=== PATIENT | male | born 1975 | race African-American/Black ===

== ENCOUNTER 2022-11-07 10:47 | Inpatient (IN) | payer OTHER ==
[2022-11-07 11:29] VITALS: BMI 25.7
[2022-11-07] MEDS ORDERED: hydrOXYzine PAMOATE 25 MG CAPSULE (FP) PO PRN (11:41)
[2022-11-07] MEDS ORDERED: NICOTINE 10 MG CARTRIDGE (INHALER) IH PRN (11:41)
[2022-11-07] MEDS ORDERED: DICYCLOMINE HCL 10 MG CAPSULE PO PRN (11:41)
[2022-11-07] MEDS ORDERED: POLYETHYLENE GLYCOL (HEALTHYLAX) 3350 17 GM PACKET PO PRN (11:41)
[2022-11-07] MEDS ORDERED: IBUPROFEN 600 MG TABLET (FP) PO PRN (11:41)
[2022-11-07] MEDS ORDERED: MAG HYDROX/AL HYDROX/SIMETH 30 ML UNIT-DOSE CUP PO PRN (11:41)
[2022-11-07] MEDS ORDERED: ONDANSETRON *ODT* 4 MG TABLET SL PRN (11:41)
[2022-11-07] MEDS ORDERED: chlordiazePOXIDE HCL 25 MG CAPSULE PO PRN (11:41)
[2022-11-07] MEDS ORDERED: LOPERAMIDE HCL 2 MG CAPSULE PO PRN (11:41)
[2022-11-07] MEDS ORDERED: IBUPROFEN 400 MG TABLET (FP) PO PRN (11:41)
[2022-11-07] MEDS ORDERED: BENZOCAINE/MENTHOL (CHLORASEPTIC ) LOZENGE MM PRN (11:41)
[2022-11-07] MEDS ORDERED: ACETAMINOPHEN 325 MG TABLET (FP) PO PRN ×2 (11:41)
[2022-11-07] MEDS ORDERED: BISMUTH SUBSALICYLATE 262 MG/15 ML BTL PO PRN (11:41)
[2022-11-07] MEDS ORDERED: MAGNESIUM HYDROX 2400MG/30ML ORAL SUSPENSION 30 ML CUP PO PRN (11:41)
[2022-11-07] MEDS ORDERED: NICOTINE POLACRILEX 2 MG GUM BUC PRN (11:41)
[2022-11-07] MEDS: chlordiazePOXIDE HCL 25 MG CAPSULE PO SCH ×2 (17:51→22:03)
[2022-11-07] MEDS: MELATONIN 5 MG TABLETS PO SCH (22:03)
[2022-11-07] MEDS: THIAMINE HCL 100 MG TABLET (FP) PO SCH (22:03)
[2022-11-08] MEDS: chlordiazePOXIDE HCL 25 MG CAPSULE PO SCH ×4 (05:28→22:11)
[2022-11-08] MEDS: NICOTINE 14 MG/24 HOURS TOPICAL PATCH TD SCH (10:10)
[2022-11-08] MEDS: PRENATAL VITAMINS W/ FOLIC ACID TABLET (FP) PO SCH (10:10)
[2022-11-08 12:05] LABS: HEMATOCRIT 39.3 % (35.4-49); HEMOGLOBIN 13.2 GM/dL (11.7-16.9); MCH 30.1 pg (25.7-33.7); MCHC 33.5 g/dl (32.0-35.9); MEAN CELL VOLUME 89.8 fl (80-96); MEAN PLT VOLUME 8.2 fl (7.5-11.1); PLATELET COUNT 322 10^3/uL (134-434); RBC 4.38 M/mm3 (4.00-5.60); RDW 14.6 % (11.9-15.9); WHITE BLOOD COUNT 6.3 K/mm3 (4.0-10.0)
[2022-11-08 12:22] LABS: BLOOD UREA NITROGEN 15.3 mg/dL (7-18)
[2022-11-08 12:26] LABS: ALBUMIN 3.4 g/dl (3.4-5.0); BILIRUBIN,TOTAL 0.7 mg/dL (0.2-1); TOT PROT 6.6 g/dl (6.4-8.2)
[2022-11-08] MEDS: THIAMINE HCL 100 MG TABLET (FP) PO SCH (22:10)
[2022-11-08] MEDS: MELATONIN 5 MG TABLETS PO SCH (22:10)
[2022-11-08] MEDS: METHOCARBAMOL 500 MG TABLET PO PRN (22:11)
[2022-11-09] MEDS ORDERED: chlordiazePOXIDE HCL 10 MG CAPSULE PO PRN
[2022-11-09] MEDS: chlordiazePOXIDE HCL 10 MG CAPSULE PO SCH ×4 (05:39→22:04)
[2022-11-09] MEDS: NICOTINE 14 MG/24 HOURS TOPICAL PATCH TD SCH (10:37)
[2022-11-09] MEDS: PRENATAL VITAMINS W/ FOLIC ACID TABLET (FP) PO SCH (10:37)
[2022-11-09] MEDS: MELATONIN 5 MG TABLETS PO SCH (22:04)
[2022-11-09] MEDS: THIAMINE HCL 100 MG TABLET (FP) PO SCH (22:04)
[2022-11-09] MEDS: METHOCARBAMOL 500 MG TABLET PO PRN (22:05)
[2022-11-10] MEDS ORDERED: chlordiazePOXIDE HCL 10 MG CAPSULE PO SCH (05:00)
[2022-11-10] MEDS: PRENATAL VITAMINS W/ FOLIC ACID TABLET (FP) PO SCH (10:45)
[2022-11-10] MEDS: NICOTINE 14 MG/24 HOURS TOPICAL PATCH TD SCH (10:45)
[2022-11-10 13:49] VITALS: BP 125/78; PULSE 63; RESP 20; TEMP 97.7
[2022-11-11] MEDS ORDERED: chlordiazePOXIDE HCL 10 MG CAPSULE PO ONE (05:00)
== END 2022-11-10 15:44 | disposition other institution (70) | DRG 774 ==
LOC: YASAS 10:47 → Y3N 11:57
PROVIDERS: ADMIT Allergy & Immunology; ATTEND Surgery
PROC: HZ2ZZZZ Detoxification Services for Substance Abuse Treatment (ICD-10-PCS; principal; 2022-11-07)
DX: F10.230 Alcohol dependence with withdrawal, uncomplicated (principal); F14.20 Cocaine dependence, uncomplicated; F12.20 Cannabis dependence, uncomplicated; F17.210 Nicotine dependence, cigarettes, uncomplicated
CPT/HCPCS: 36415; 80053; 85027; 86780; 87811; 93005; 93010; C9803-CS; U0003; U0005

== ENCOUNTER 2022-11-10 15:45 | Inpatient (IN) | payer OTHER ==
[2022-11-10] MEDS ORDERED: BENZOCAINE/MENTHOL (CHLORASEPTIC ) LOZENGE MM PRN (16:59)
[2022-11-10] MEDS ORDERED: NICOTINE 10 MG CARTRIDGE (INHALER) IH PRN (16:59)
[2022-11-10] MEDS ORDERED: LOPERAMIDE HCL 2 MG CAPSULE PO PRN (16:59)
[2022-11-10] MEDS ORDERED: guaiFENesin 200 MG/10 ML 10 ML UNIT-DOSE CUPS PO PRN (16:59)
[2022-11-10] MEDS ORDERED: P-EPHED 60MG/TRIPROLIDI 2.5MG TABLET PO PRN (16:59)
[2022-11-10] MEDS ORDERED: MAGNESIUM HYDROX 2400MG/30ML ORAL SUSPENSION 30 ML CUP PO PRN (16:59)
[2022-11-10] MEDS ORDERED: POLYETHYLENE GLYCOL (HEALTHYLAX) 3350 17 GM PACKET PO PRN (16:59)
[2022-11-10] MEDS ORDERED: ACETAMINOPHEN 325 MG TABLET (FP) PO PRN (16:59)
[2022-11-10] MEDS ORDERED: IBUPROFEN 400 MG TABLET (FP) PO PRN (16:59)
[2022-11-10] MEDS ORDERED: MAG HYDROX/AL HYDROX/SIMETH 30 ML UNIT-DOSE CUP PO PRN (16:59)
[2022-11-10] MEDS ORDERED: hydrOXYzine PAMOATE 25 MG CAPSULE (FP) PO PRN (16:59)
[2022-11-10] MEDS ORDERED: METHOCARBAMOL 500 MG TABLET PO PRN (17:01)
[2022-11-10] MEDS: NICOTINE 7 MG/24 HOURS TOPICAL PATCH TD SCH (17:24)
[2022-11-10] MEDS: PRENATAL VITAMINS W/ FOLIC ACID TABLET (FP) PO SCH (17:24)
[2022-11-10] MEDS: THIAMINE HCL 100 MG TABLET (FP) PO SCH (21:20)
[2022-11-10] MEDS ORDERED: MELATONIN 5 MG TABLETS PO SCH (22:00)
[2022-11-11] MEDS: PRENATAL VITAMINS W/ FOLIC ACID TABLET (FP) PO SCH (11:04)
[2022-11-11] MEDS: NICOTINE 7 MG/24 HOURS TOPICAL PATCH TD SCH (11:04)
[2022-11-11] MEDS: THIAMINE HCL 100 MG TABLET (FP) PO SCH (21:33)
[2022-11-11] MEDS ORDERED: MELATONIN 5 MG TABLETS PO SCH (22:00)
[2022-11-12 07:05] VITALS: BP 132/78; PULSE 65; RESP 16; TEMP 97.5
[2022-11-12] MEDS: PRENATAL VITAMINS W/ FOLIC ACID TABLET (FP) PO SCH (10:10)
[2022-11-12] MEDS: NICOTINE 7 MG/24 HOURS TOPICAL PATCH TD SCH (10:10)
== END 2022-11-12 11:57 | disposition left against medical advice (07) | DRG 770 ==
LOC: YASAS 15:45 → Y3W 15:46
PROVIDERS: ADMIT Allergy & Immunology; ATTEND Allergy & Immunology
PROC: HZ42ZZZ Group Counseling for Substance Abuse Treatment, Cognitive-Behavioral (ICD-10-PCS; principal; 2022-11-10)
DX: F11.20 Opioid dependence, uncomplicated (principal); F14.20 Cocaine dependence, uncomplicated; F12.20 Cannabis dependence, uncomplicated; F17.210 Nicotine dependence, cigarettes, uncomplicated
CPT/HCPCS: 36415; 86803

== ENCOUNTER 2022-12-15 11:16 | Inpatient (IN) | payer OTHER ==
[2022-12-15 11:38] VITALS: BMI 27.9
[2022-12-15] MEDS ORDERED: POLYETHYLENE GLYCOL (HEALTHYLAX) 3350 17 GM PACKET PO PRN (12:08)
[2022-12-15] MEDS ORDERED: LOPERAMIDE HCL 2 MG CAPSULE PO PRN (12:08)
[2022-12-15] MEDS ORDERED: ACETAMINOPHEN 325 MG TABLET (FP) PO PRN (12:08)
[2022-12-15] MEDS ORDERED: guaiFENesin 600 MG TABLET.ER (FP) PO PRN (12:08)
[2022-12-15] MEDS ORDERED: BENZONATATE 200 MG CAPSULE PO PRN (12:08)
[2022-12-15] MEDS ORDERED: BISMUTH SUBSALICYLATE 524 MG/30 ML PO PRN (12:08)
[2022-12-15] MEDS ORDERED: ONDANSETRON *ODT* 4 MG TABLET SL PRN (12:08)
[2022-12-15] MEDS ORDERED: chlordiazePOXIDE HCL 25 MG CAPSULE PO PRN (12:08)
[2022-12-15] MEDS ORDERED: IBUPROFEN 400 MG TABLET (FP) PO PRN (12:08)
[2022-12-15] MEDS ORDERED: IBUPROFEN 600 MG TABLET (FP) PO PRN (12:08)
[2022-12-15] MEDS ORDERED: MAG HYDROX/AL HYDROX/SIMETH 30 ML UNIT-DOSE CUP PO PRN (12:08)
[2022-12-15] MEDS ORDERED: MAGNESIUM HYDROX 2400MG/30ML ORAL SUSPENSION 30 ML CUP PO PRN (12:08)
[2022-12-15] MEDS ORDERED: DICYCLOMINE HCL 10 MG CAPSULE PO PRN (12:08)
[2022-12-15] MEDS ORDERED: BENZOCAINE/MENTHOL (CHLORASEPTIC ) LOZENGE MM PRN (12:08)
[2022-12-15] MEDS ORDERED: IBUPROFEN 600 MG TABLET (FP) PO ONE (13:42)
[2022-12-15 16:48] LABS: HEMOGLOBIN 14.6 GM/dL (11.7-16.9); MCH 30.1 pg (25.7-33.7); MCHC 34.9 g/dl (32.0-35.9); MEAN CELL VOLUME 86.3 fl (80-96); MEAN PLT VOLUME 8.4 fl (7.5-11.1); PLATELET COUNT 355 10^3/uL (134-434); RBC 4.86 M/mm3 (4.00-5.60); RDW 13.8 % (11.9-15.9); WHITE BLOOD COUNT 5.7 K/mm3 (4.0-10.0)
[2022-12-15 16:51] LABS: CALCIUM 9.2 mg/dL (8.5-10.1)
[2022-12-15 16:52] LABS: BLOOD UREA NITROGEN 29.5 mg/dL (7-18)
[2022-12-15 16:55] LABS: CREATININE 1.2 mg/dL (0.55-1.3)
[2022-12-15 16:57] LABS: BILIRUBIN,TOTAL 1.6 mg/dL (0.2-1); TOT PROT 8.1 g/dl (6.4-8.2)
[2022-12-15] MEDS: chlordiazePOXIDE HCL 25 MG CAPSULE PO SCH ×2 (17:31→22:12)
[2022-12-15] MEDS: THIAMINE HCL 100 MG TABLET (FP) PO SCH (22:12)
[2022-12-15] MEDS: MELATONIN 5 MG TABLETS PO SCH (22:13)
[2022-12-16] MEDS: chlordiazePOXIDE HCL 25 MG CAPSULE PO SCH ×2 (05:25→10:15)
[2022-12-16] MEDS: PRENATAL VITAMINS W/ FOLIC ACID TABLET (FP) PO SCH (10:14)
[2022-12-16] MEDS: hydrOXYzine PAMOATE 25 MG CAPSULE (FP) PO PRN (10:15)
[2022-12-16] MEDS: METHOCARBAMOL 500 MG TABLET PO PRN (10:15)
[2022-12-16] MEDS ORDERED: LORazepam 1 MG TABLET PO PRN (12:28)
[2022-12-16] MEDS: LORazepam 2 MG TABLET PO SCH ×2 (17:24→22:19)
[2022-12-16] MEDS: MELATONIN 5 MG TABLETS PO SCH (22:19)
[2022-12-16] MEDS: THIAMINE HCL 100 MG TABLET (FP) PO SCH (22:19)
[2022-12-17] MEDS ORDERED: chlordiazePOXIDE HCL 25 MG CAPSULE PO SCH (05:00)
[2022-12-17] MEDS: LORazepam 1 MG TABLET PO SCH ×4 (05:42→22:04)
[2022-12-17 10:41] LABS: BLOOD UREA NITROGEN 15.7 mg/dL (7-18)
[2022-12-17] MEDS: PRENATAL VITAMINS W/ FOLIC ACID TABLET (FP) PO SCH (10:44)
[2022-12-17] MEDS: METHOCARBAMOL 500 MG TABLET PO PRN (10:44)
[2022-12-17] MEDS: hydrOXYzine PAMOATE 25 MG CAPSULE (FP) PO PRN (10:44)
[2022-12-17 10:46] LABS: BILIRUBIN,TOTAL 0.7 mg/dL (0.2-1)
[2022-12-17] MEDS: MELATONIN 5 MG TABLETS PO SCH (22:04)
[2022-12-17] MEDS: THIAMINE HCL 100 MG TABLET (FP) PO SCH (22:04)
[2022-12-18] MEDS ORDERED: chlordiazePOXIDE HCL 10 MG CAPSULE PO PRN
[2022-12-18] MEDS ORDERED: LORazepam 0.5 MG TABLET PO PRN
[2022-12-18] MEDS ORDERED: chlordiazePOXIDE HCL 10 MG CAPSULE PO SCH (05:00)
[2022-12-18] MEDS: LORazepam 0.5 MG TABLET PO SCH ×4 (05:39→22:10)
[2022-12-18 10:09] VITALS: RESP 18
[2022-12-18] MEDS: hydrOXYzine PAMOATE 25 MG CAPSULE (FP) PO PRN (10:10)
[2022-12-18] MEDS: METHOCARBAMOL 500 MG TABLET PO PRN (10:10)
[2022-12-18] MEDS: PRENATAL VITAMINS W/ FOLIC ACID TABLET (FP) PO SCH (10:10)
[2022-12-18] MEDS: THIAMINE HCL 100 MG TABLET (FP) PO SCH (22:05)
[2022-12-18] MEDS: MELATONIN 5 MG TABLETS PO SCH (22:05)
[2022-12-19] MEDS ORDERED: chlordiazePOXIDE HCL 10 MG CAPSULE PO SCH (05:00)
[2022-12-19] MEDS: LORazepam 0.5 MG TABLET PO SCH (05:40)
[2022-12-19 09:17] VITALS: BP 135/92; PULSE 73; TEMP 98
[2022-12-19] MEDS: PRENATAL VITAMINS W/ FOLIC ACID TABLET (FP) PO SCH (10:50)
[2022-12-20] MEDS ORDERED: chlordiazePOXIDE HCL 10 MG CAPSULE PO ONE (05:00)
== END 2022-12-19 10:03 | disposition home or self-care (01) | DRG 774 ==
LOC: YASAS 11:16 → Y6N 13:33
PROVIDERS: ADMIT Allergy & Immunology; ATTEND Surgery
PROC: HZ2ZZZZ Detoxification Services for Substance Abuse Treatment (ICD-10-PCS; principal; 2022-12-15)
DX: F10.230 Alcohol dependence with withdrawal, uncomplicated (principal); F14.20 Cocaine dependence, uncomplicated; F12.20 Cannabis dependence, uncomplicated
CPT/HCPCS: 36415; 80053; 82247; 83036; 84520; 85027; 86780; C9803-CS; U0003; U0005

== ENCOUNTER 2023-02-25 12:22 | Inpatient (IN) | payer OTHER ==
[2023-02-25 12:56] VITALS: BMI 29.4
[2023-02-25] MEDS ORDERED: IBUPROFEN 600 MG TABLET (FP) PO PRN (13:21)
[2023-02-25] MEDS ORDERED: ACETAMINOPHEN 325 MG TABLET (FP) PO PRN (13:21)
[2023-02-25] MEDS ORDERED: LOPERAMIDE HCL 2 MG CAPSULE PO PRN (13:21)
[2023-02-25] MEDS ORDERED: BENZONATATE 200 MG CAPSULE PO PRN (13:21)
[2023-02-25] MEDS ORDERED: NALOXONE HCL (KLOXXADO) 8 MG SPRAY NS PRN (13:21)
[2023-02-25] MEDS ORDERED: BENZOCAINE/MENTHOL (CHLORASEPTIC ) LOZENGE MM PRN (13:21)
[2023-02-25] MEDS ORDERED: BISMUTH SUBSALICYLATE 524 MG/30 ML PO PRN (13:21)
[2023-02-25] MEDS ORDERED: DICYCLOMINE HCL 10 MG CAPSULE PO PRN (13:21)
[2023-02-25] MEDS ORDERED: MAGNESIUM HYDROX 2400MG/30ML ORAL SUSPENSION 30 ML CUP PO PRN (13:21)
[2023-02-25] MEDS ORDERED: guaiFENesin 600 MG TABLET.ER (FP) PO PRN (13:21)
[2023-02-25] MEDS ORDERED: IBUPROFEN 400 MG TABLET (FP) PO PRN (13:21)
[2023-02-25] MEDS ORDERED: MAG HYDROX/AL HYDROX/SIMETH 30 ML UNIT-DOSE CUP PO PRN (13:21)
[2023-02-25] MEDS ORDERED: ONDANSETRON *ODT* 4 MG TABLET SL PRN (13:21)
[2023-02-25] MEDS ORDERED: hydrOXYzine PAMOATE 25 MG CAPSULE (FP) PO PRN (13:21)
[2023-02-25] MEDS ORDERED: NALOXONE HCL 0.4 MG/ML VIAL IM PRN (13:21)
[2023-02-25] MEDS ORDERED: POLYETHYLENE GLYCOL (HEALTHYLAX) 3350 17 GM PACKET PO PRN (13:21)
[2023-02-25] MEDS ORDERED: NICOTINE 10 MG CARTRIDGE (INHALER) IH PRN (13:21)
[2023-02-25] MEDS: THIAMINE HCL 100 MG TABLET (FP) PO SCH (22:40)
[2023-02-25] MEDS: METHOCARBAMOL 500 MG TABLET PO PRN (22:40)
[2023-02-25] MEDS: MELATONIN 5 MG TABLETS PO SCH (22:40)
[2023-02-26] MEDS ORDERED: diazePAM 5 MG TABLET PO PRN (05:32)
[2023-02-26] MEDS: diazePAM 5 MG TABLET PO SCH ×4 (05:50→22:19)
[2023-02-26] MEDS: PRENATAL VITAMINS W/ FOLIC ACID TABLET (FP) PO SCH (11:00)
[2023-02-26] MEDS: METHOCARBAMOL 500 MG TABLET PO PRN (11:00)
[2023-02-26 11:39] LABS: HEMATOCRIT 46.3 % (35.4-49); HEMOGLOBIN 15.4 GM/dL (11.7-16.9); MCHC 33.2 g/dl (32.0-35.9); MEAN CELL VOLUME 87.4 fl (80-96); MEAN PLT VOLUME 8.5 fl (7.5-11.1); PLATELET COUNT 391 10^3/uL (134-434); RDW 13.9 % (11.9-15.9); WHITE BLOOD COUNT 7.2 K/mm3 (4.0-10.0)
[2023-02-26 11:42] LABS: POTASSIUM 4.7 mmol/L (3.5-5.1)
[2023-02-26 11:46] LABS: CALCIUM 9.7 mg/dL (8.5-10.1)
[2023-02-26 11:48] LABS: ALBUMIN 3.9 g/dl (3.4-5.0); BLOOD UREA NITROGEN 17.3 mg/dL (7-18)
[2023-02-26 11:50] LABS: CREATININE 1.1 mg/dL (0.55-1.3)
[2023-02-26 11:52] LABS: BILIRUBIN,TOTAL 1.5 mg/dL (0.2-1); TOT PROT 7.8 g/dl (6.4-8.2)
[2023-02-26 12:38] LABS: HIV INTERPRETATION NEGATIVE (NEGATIVE)
[2023-02-26] MEDS: THIAMINE HCL 100 MG TABLET (FP) PO SCH (22:18)
[2023-02-26] MEDS: MELATONIN 5 MG TABLETS PO SCH (22:18)
[2023-02-27] MEDS: diazePAM 5 MG TABLET PO SCH ×3 (05:24→22:06)
[2023-02-27] MEDS: PRENATAL VITAMINS W/ FOLIC ACID TABLET (FP) PO SCH (10:13)
[2023-02-27] MEDS: THIAMINE HCL 100 MG TABLET (FP) PO SCH (22:06)
[2023-02-27] MEDS: MELATONIN 5 MG TABLETS PO SCH (22:06)
[2023-02-28] MEDS: diazePAM 5 MG TABLET PO SCH ×2 (05:53→17:21)
[2023-02-28] MEDS: PRENATAL VITAMINS W/ FOLIC ACID TABLET (FP) PO SCH (10:04)
[2023-02-28 21:20] VITALS: TEMP 97.1
[2023-02-28] MEDS: MELATONIN 5 MG TABLETS PO SCH (22:04)
[2023-02-28] MEDS: THIAMINE HCL 100 MG TABLET (FP) PO SCH (22:04)
[2023-03-01] MEDS ORDERED: diazePAM 5 MG TABLET PO ONE (06:00)
[2023-03-01 09:43] VITALS: BP 152/90; PULSE 71; RESP 17
[2023-03-01] MEDS: PRENATAL VITAMINS W/ FOLIC ACID TABLET (FP) PO SCH (10:02)
== END 2023-03-01 12:25 | disposition home or self-care (01) | DRG 774 ==
LOC: YASAS 12:22 → Y6N 14:41
PROVIDERS: ADMIT Allergy & Immunology; ATTEND Surgery
PROC: HZ2ZZZZ Detoxification Services for Substance Abuse Treatment (ICD-10-PCS; principal; 2023-02-25)
DX: F10.230 Alcohol dependence with withdrawal, uncomplicated (principal); F14.20 Cocaine dependence, uncomplicated; F12.20 Cannabis dependence, uncomplicated; F17.213 Nicotine dependence, cigarettes, with withdrawal
CPT/HCPCS: 36415; 80053; 85027; 86780; 87389; 87635; 87811

== ENCOUNTER 2023-07-03 15:11 | Inpatient (IN) | payer OTHER ==
[2023-07-03 15:44] VITALS: BMI 29.9
[2023-07-03] MEDS ORDERED: guaiFENesin 600 MG TABLET.ER (FP) PO PRN (17:09)
[2023-07-03] MEDS ORDERED: BISMUTH SUBSALICYLATE 524 MG/30 ML PO PRN (17:09)
[2023-07-03] MEDS ORDERED: NALOXONE HCL 0.4 MG/ML VIAL IM PRN (17:09)
[2023-07-03] MEDS ORDERED: IBUPROFEN 400 MG TABLET (FP) PO PRN (17:09)
[2023-07-03] MEDS ORDERED: LOPERAMIDE HCL 2 MG CAPSULE PO PRN (17:09)
[2023-07-03] MEDS ORDERED: ACETAMINOPHEN 325 MG TABLET (FP) PO PRN (17:09)
[2023-07-03] MEDS ORDERED: POLYETHYLENE GLYCOL (HEALTHYLAX) 3350 17 GM PACKET PO PRN (17:09)
[2023-07-03] MEDS ORDERED: DICYCLOMINE HCL 10 MG CAPSULE PO PRN (17:09)
[2023-07-03] MEDS ORDERED: IBUPROFEN 600 MG TABLET (FP) PO PRN (17:09)
[2023-07-03] MEDS ORDERED: hydrOXYzine PAMOATE 25 MG CAPSULE (FP) PO PRN (17:09)
[2023-07-03] MEDS ORDERED: ONDANSETRON *ODT* 4 MG TABLET SL PRN (17:09)
[2023-07-03] MEDS ORDERED: BENZONATATE 200 MG CAPSULE PO PRN (17:09)
[2023-07-03] MEDS ORDERED: NALOXONE HCL (KLOXXADO) 8 MG SPRAY NS PRN (17:09)
[2023-07-03] MEDS ORDERED: MAG HYDROX/AL HYDROX/SIMETH 30 ML UNIT-DOSE CUP PO PRN (17:09)
[2023-07-03] MEDS ORDERED: MAGNESIUM HYDROX 2400MG/30ML ORAL SUSPENSION 30 ML CUP PO PRN (17:09)
[2023-07-03] MEDS ORDERED: BENZOCAINE/MENTHOL (CHLORASEPTIC ) LOZENGE MM PRN (17:09)
[2023-07-03] MEDS ORDERED: METHOCARBAMOL 500 MG TABLET ONE (18:02)
[2023-07-03] MEDS ORDERED: IBUPROFEN 600 MG TABLET (FP) PO ONE (18:02)
[2023-07-03] MEDS: METHOCARBAMOL 500 MG TABLET PO PRN (18:03)
[2023-07-03] MEDS ORDERED: PRENATAL VITAMINS W/ FOLIC ACID TABLET (FP) PO ONE (18:10)
[2023-07-03] MEDS: PRENATAL VITAMINS W/ FOLIC ACID TABLET (FP) PO SCH (18:14)
[2023-07-03] MEDS: MELATONIN 5 MG TABLETS PO SCH (22:21)
[2023-07-03] MEDS: THIAMINE HCL 100 MG TABLET (FP) PO SCH (22:21)
[2023-07-04] MEDS: PRENATAL VITAMINS W/ FOLIC ACID TABLET (FP) PO SCH (10:01)
[2023-07-04] MEDS ORDERED: chlordiazePOXIDE HCL 25 MG CAPSULE PO PRN (10:45)
[2023-07-04 11:19] LABS: HEMATOCRIT 42.8 % (35.4-49); HEMOGLOBIN 14.4 GM/dL (11.7-16.9); MCH 29.2 pg (25.7-33.7); MCHC 33.6 g/dl (32.0-35.9); MEAN CELL VOLUME 86.9 fl (80-96); MEAN PLT VOLUME 8.6 fl (7.5-11.1); PLATELET COUNT 382 10^3/uL (134-434); RBC 4.92 M/mm3 (4.00-5.60); RDW 13.9 % (11.9-15.9); WHITE BLOOD COUNT 5.4 K/mm3 (4.0-10.0)
[2023-07-04] MEDS: chlordiazePOXIDE HCL 25 MG CAPSULE PO SCH ×3 (11:46→22:22)
[2023-07-04 11:59] LABS: POTASSIUM 4.5 mmol/L (3.5-5.1)
[2023-07-04 12:16] LABS: ALBUMIN 3.8 g/dl (3.4-5.0); BLOOD UREA NITROGEN 20.9 mg/dL (7-18)
[2023-07-04 12:20] LABS: TOT PROT 7.5 g/dl (6.4-8.2)
[2023-07-04 12:21] LABS: BILIRUBIN,TOTAL 0.7 mg/dL (0.2-1)
[2023-07-04] MEDS: MELATONIN 5 MG TABLETS PO SCH (22:22)
[2023-07-04] MEDS: THIAMINE HCL 100 MG TABLET (FP) PO SCH (22:22)
[2023-07-05] MEDS: chlordiazePOXIDE HCL 25 MG CAPSULE PO SCH ×4 (05:59→22:11)
[2023-07-05] MEDS: PRENATAL VITAMINS W/ FOLIC ACID TABLET (FP) PO SCH (10:28)
[2023-07-05] MEDS: METHOCARBAMOL 500 MG TABLET PO PRN (17:26)
[2023-07-05] MEDS: MELATONIN 5 MG TABLETS PO SCH (22:11)
[2023-07-05] MEDS: THIAMINE HCL 100 MG TABLET (FP) PO SCH (22:11)
[2023-07-06] MEDS: chlordiazePOXIDE HCL 25 MG CAPSULE PO SCH ×2 (05:35→10:25)
[2023-07-06 06:01] VITALS: RESP 16
[2023-07-06] MEDS: PRENATAL VITAMINS W/ FOLIC ACID TABLET (FP) PO SCH (10:24)
[2023-07-06 12:44] VITALS: BP 140/96; PULSE 90; TEMP 97.8
[2023-07-07] MEDS ORDERED: chlordiazePOXIDE HCL 10 MG CAPSULE PO PRN
[2023-07-07] MEDS ORDERED: chlordiazePOXIDE HCL 10 MG CAPSULE PO SCH (05:00)
[2023-07-08] MEDS ORDERED: chlordiazePOXIDE HCL 10 MG CAPSULE PO SCH (05:00)
[2023-07-09] MEDS ORDERED: chlordiazePOXIDE HCL 10 MG CAPSULE PO ONE (05:00)
== END 2023-07-06 15:22 | disposition left against medical advice (07) | DRG 770 ==
LOC: YASAS 15:11 → Y3N 17:36
PROVIDERS: ADMIT Allergy & Immunology; ATTEND Surgery
PROC: HZ2ZZZZ Detoxification Services for Substance Abuse Treatment (ICD-10-PCS; principal; 2023-07-03)
DX: F10.230 Alcohol dependence with withdrawal, uncomplicated (principal); F14.20 Cocaine dependence, uncomplicated; F17.210 Nicotine dependence, cigarettes, uncomplicated; I10 Essential (primary) hypertension; M54.50 Low back pain, unspecified; G89.29 Other chronic pain
CPT/HCPCS: 36415; 80053; 80307; 85027; 86780; 87635; 87811

== ENCOUNTER 2023-08-17 08:42 | Inpatient (IN) | payer OTHER ==
[2023-08-17 09:22] VITALS: BMI 29.2
[2023-08-17] MEDS ORDERED: diazePAM 5 MG TABLET PO ONE (09:45)
[2023-08-17] MEDS ORDERED: diazePAM 5 MG TABLET PO PRN (09:45)
[2023-08-17] MEDS ORDERED: BENZONATATE 200 MG CAPSULE PO PRN (10:05)
[2023-08-17] MEDS ORDERED: ONDANSETRON *ODT* 4 MG TABLET SL PRN (10:05)
[2023-08-17] MEDS ORDERED: IBUPROFEN 600 MG TABLET (FP) PO PRN (10:05)
[2023-08-17] MEDS ORDERED: hydrOXYzine PAMOATE 25 MG CAPSULE (FP) PO PRN (10:05)
[2023-08-17] MEDS ORDERED: LOPERAMIDE HCL 2 MG CAPSULE PO PRN (10:05)
[2023-08-17] MEDS ORDERED: NICOTINE POLACRILEX 2 MG GUM BUC PRN (10:05)
[2023-08-17] MEDS ORDERED: BISMUTH SUBSALICYLATE 262 MG/15 ML BTL PO PRN (10:05)
[2023-08-17] MEDS ORDERED: P-EPHED 60MG/TRIPROLIDI 2.5MG TABLET PO PRN (10:05)
[2023-08-17] MEDS ORDERED: MAG HYDROX/AL HYDROX/SIMETH 30 ML UNIT-DOSE CUP PO PRN (10:05)
[2023-08-17] MEDS ORDERED: POLYETHYLENE GLYCOL (HEALTHYLAX) 3350 17 GM PACKET PO PRN (10:05)
[2023-08-17] MEDS ORDERED: ACETAMINOPHEN 325 MG TABLET (FP) PO PRN (10:05)
[2023-08-17] MEDS ORDERED: DICYCLOMINE HCL 10 MG CAPSULE PO PRN (10:05)
[2023-08-17] MEDS ORDERED: METHOCARBAMOL 500 MG TABLET PO PRN (10:05)
[2023-08-17] MEDS ORDERED: MAGNESIUM HYDROX 2400MG/30ML ORAL SUSPENSION 30 ML CUP PO PRN (10:05)
[2023-08-17] MEDS ORDERED: guaiFENesin 600 MG TABLET.ER (FP) PO PRN (10:05)
[2023-08-17] MEDS ORDERED: BENZOCAINE/MENTHOL (CHLORASEPTIC ) LOZENGE MM PRN (10:05)
[2023-08-17] MEDS: diazePAM 5 MG TABLET PO SCH ×3 (12:00→22:26)
[2023-08-17] MEDS: IBUPROFEN 400 MG TABLET (FP) PO PRN (17:22)
[2023-08-17] MEDS: THIAMINE HCL 100 MG TABLET (FP) PO SCH (22:26)
[2023-08-17] MEDS: MELATONIN 5 MG TABLETS PO SCH (22:26)
[2023-08-18] MEDS: diazePAM 5 MG TABLET PO SCH ×4 (05:29→22:18)
[2023-08-18] MEDS: PRENATAL VITAMINS W/ FOLIC ACID TABLET (FP) PO SCH (10:23)
[2023-08-18 10:57] LABS: CALCIUM 8.9 mg/dL (8.5-10.1)
[2023-08-18 10:58] LABS: ALBUMIN 3.8 g/dl (3.4-5.0); BLOOD UREA NITROGEN 18.8 mg/dL (7-18)
[2023-08-18 11:03] LABS: BILIRUBIN,TOTAL 0.6 mg/dL (0.2-1); TOT PROT 7.4 g/dl (6.4-8.2)
[2023-08-18 12:19] LABS: HEMATOCRIT 40.2 % (35.4-49); HEMOGLOBIN 13.5 GM/dL (11.7-16.9); MCH 29.1 pg (25.7-33.7); MCHC 33.6 g/dl (32.0-35.9); MEAN CELL VOLUME 86.5 fl (80-96); MEAN PLT VOLUME 8.1 fl (7.5-11.1); PLATELET COUNT 404 10^3/uL (134-434); RBC 4.65 M/mm3 (4.00-5.60); RDW 14.5 % (11.9-15.9); WHITE BLOOD COUNT 10.7 K/mm3 (4.0-10.0)
[2023-08-18] MEDS: THIAMINE HCL 100 MG TABLET (FP) PO SCH (22:17)
[2023-08-18] MEDS: MELATONIN 5 MG TABLETS PO SCH (22:18)
[2023-08-19] MEDS: diazePAM 5 MG TABLET PO SCH ×3 (05:30→22:09)
[2023-08-19] MEDS: PRENATAL VITAMINS W/ FOLIC ACID TABLET (FP) PO SCH (10:29)
[2023-08-19] MEDS: IBUPROFEN 400 MG TABLET (FP) PO PRN (16:34)
[2023-08-19] MEDS: MELATONIN 5 MG TABLETS PO SCH (22:08)
[2023-08-19] MEDS: THIAMINE HCL 100 MG TABLET (FP) PO SCH (22:09)
[2023-08-20] MEDS: diazePAM 5 MG TABLET PO SCH ×2 (05:31→17:11)
[2023-08-20] MEDS: PRENATAL VITAMINS W/ FOLIC ACID TABLET (FP) PO SCH (09:57)
[2023-08-20] MEDS: IBUPROFEN 400 MG TABLET (FP) PO PRN (15:02)
[2023-08-20] MEDS: MELATONIN 5 MG TABLETS PO SCH (22:01)
[2023-08-20] MEDS: THIAMINE HCL 100 MG TABLET (FP) PO SCH (22:01)
[2023-08-21] MEDS ORDERED: diazePAM 5 MG TABLET PO ONE (06:00)
[2023-08-21 06:40] VITALS: PULSE 67
[2023-08-21 09:32] VITALS: BP 134/82; RESP 19; TEMP 97.8
[2023-08-21] MEDS: PRENATAL VITAMINS W/ FOLIC ACID TABLET (FP) PO SCH (09:34)
== END 2023-08-21 09:55 | disposition home or self-care (01) | DRG 774 ==
LOC: YASAS 08:42 → Y6N 10:19
PROVIDERS: ADMIT Allergy & Immunology; ATTEND Surgery
PROC: HZ2ZZZZ Detoxification Services for Substance Abuse Treatment (ICD-10-PCS; principal; 2023-08-17)
DX: F10.230 Alcohol dependence with withdrawal, uncomplicated (principal); F14.20 Cocaine dependence, uncomplicated; F12.20 Cannabis dependence, uncomplicated; F17.210 Nicotine dependence, cigarettes, uncomplicated; I10 Essential (primary) hypertension; M54.50 Low back pain, unspecified; G89.29 Other chronic pain
CPT/HCPCS: 36415; 80053; 80307; 85027; 86780; 87635

== ENCOUNTER 2025-05-10 11:52 | Inpatient (IN) | payer OTHER ==
[2025-05-10 12:25] VITALS: BMI 26.4
[2025-05-10] MEDS ORDERED: LOPERAMIDE HCL 2 MG CAPSULE PO PRN (13:39)
[2025-05-10] MEDS ORDERED: NICOTINE 7 MG/24 HOURS TOPICAL PATCH TD PRN (13:39)
[2025-05-10] MEDS ORDERED: BENZOCAINE/MENTHOL (CHLORASEPTIC ) LOZENGE MM PRN (13:39)
[2025-05-10] MEDS ORDERED: ONDANSETRON *ODT* 4 MG TABLET SL PRN (13:39)
[2025-05-10] MEDS ORDERED: NICOTINE POLACRILEX 2 MG GUM BUC PRN (13:39)
[2025-05-10] MEDS ORDERED: NICOTINE POLACRILEX 2 MG LOZENGE BC PRN (13:39)
[2025-05-10] MEDS ORDERED: BISMUTH SUBSALICYLATE 524 MG/30 ML PO PRN (13:39)
[2025-05-10] MEDS ORDERED: MAGNESIUM HYDROX 2400MG/30ML ORAL SUSPENSION 30 ML CUP PO PRN (13:39)
[2025-05-10] MEDS ORDERED: DICYCLOMINE HCL 10 MG CAPSULE PO PRN (13:39)
[2025-05-10] MEDS ORDERED: IBUPROFEN 400 MG TABLET (FP) PO PRN (13:39)
[2025-05-10] MEDS ORDERED: IBUPROFEN 600 MG TABLET (FP) PO PRN (13:39)
[2025-05-10] MEDS ORDERED: MAG HYDROX/AL HYDROX/SIMETH 30 ML UNIT-DOSE CUP PO PRN (13:39)
[2025-05-10] MEDS ORDERED: BENZONATATE 200 MG CAPSULE PO PRN (13:39)
[2025-05-10] MEDS ORDERED: NALOXONE (NARCAN) HCL 4 MG/0.1 ML SPRAY NS PRN (13:39)
[2025-05-10] MEDS ORDERED: LIDOCAINE 5% TOPICAL PATCH TP PRN (13:39)
[2025-05-10] MEDS ORDERED: POLYETHYLENE GLYCOL (HEALTHYLAX) 3350 17 GM PACKET PO PRN (13:39)
[2025-05-10] MEDS ORDERED: ACETAMINOPHEN 325 MG TABLET (FP) PO PRN (13:39)
[2025-05-10] MEDS ORDERED: guaiFENesin 600 MG TABLET.ER (FP) PO PRN (13:39)
[2025-05-10] MEDS ORDERED: amLODIPine BESYLATE 5 MG TABLET (FP) ONE (14:15)
[2025-05-10] MEDS: amLODIPine BESYLATE 10 MG TABLET (FP) PO SCH (14:17)
[2025-05-10] MEDS: MELATONIN 5 MG TABLETS PO SCH (22:16)
[2025-05-10] MEDS: THIAMINE 100 MG TABLET PO SCH (22:16)
[2025-05-10] MEDS: LIDOCAINE PATCH REMOVAL MC SCH (22:18)
[2025-05-11 09:30] LABS: GLUCOSE,RANDOM 104 mg/dL (74-106); TOT PROT 6.4 g/dl (6.4-8.2)
[2025-05-11 09:31] LABS: CO2 26 mmol/L (21-32)
[2025-05-11 09:33] LABS: ALK PHOS 75 U/L (40-150)
[2025-05-11 09:36] LABS: CREATININE 0.85 mg/dL (0.55-1.3); MCHC 32.0 g/dl (32.3-36.5); MEAN CELL VOLUME 90.8 fl (79.0-92.2); MEAN PLT VOLUME 10.2 fl (9.4-12.4); RDW 13.6 % (12.1-15.9); SGOT/AST 24 U/L (5-34); SGPT/ALT 39 U/L (0-55)
[2025-05-11] MEDS: PRENATAL VITAMINS W/ FOLIC ACID TABLET (FP) PO SCH (10:19)
[2025-05-11] MEDS: BACLOFEN 10 MG TABLET (FP) PO PRN (10:20)
[2025-05-14 20:51] VITALS: RESP 18
[2025-05-15 09:23] VITALS: BP 136/84; PULSE 80; TEMP 97.7
== END 2025-05-15 09:09 | disposition home or self-care (01) | DRG 774 ==
LOC: YASAS 11:52 → Y3N 14:05
PROVIDERS: ADMIT Psychiatry & Neurology Pain Medicine; ATTEND Allergy & Immunology
PROC: HZ2ZZZZ Detoxification Services for Substance Abuse Treatment (ICD-10-PCS; principal; 2025-05-10)
DX: F10.230 Alcohol dependence with withdrawal, uncomplicated (principal); F14.20 Cocaine dependence, uncomplicated; F12.23 Cannabis dependence with withdrawal; F17.210 Nicotine dependence, cigarettes, uncomplicated; F19.24 Other psychoactive substance dependence with psychoactive substance-induced mood disorder; E78.5 Hyperlipidemia, unspecified; I10 Essential (primary) hypertension; M54.50 Low back pain, unspecified; G89.29 Other chronic pain
CPT/HCPCS: 36415; 80053; 80307; 85027; 86780; 93005; 93010; J0475